=== PATIENT | female | born 2000 | race Caucasian/White ===

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

== ENCOUNTER 2019-10-28 20:12 | Emergency (ER) | payer OTHER ==
[~2019-10-28] VITALS: Ht 165.1 cm; Wt 68.0 kg
[~2019-10-28 20:12] MED LIST: BACIOIN7 TOP; IBUP80TA PO; MICR1TAB11 PO
[2019-10-28] MEDS ORDERED: LEVO50TA5 PO (20:21)
[2019-10-28 21:03] LABS: BASO # 0.1 10^3/uL (0.0-0.2); BASO % 0.5 % (0.0-1.0); EOS % 0.2 % (0.0-3.0); HEMATOCRIT 38.6 % (36.0-47.0); HEMOGLOBIN 12.7 g/dl (12.0-15.5); LYMPH # 1.9 10^3/uL (1.5-5.0); LYMPH % 19.9 % (24.0-44.0); MEAN CORPUSCULAR HGB CONC 32.9 g/dl (32.0-36.5); MEAN CORPUSCULAR VOLUME 88.1 fl (80.0-96.0); MONO # 0.7 10^3/uL (0.0-0.8); MONO % 7.3 % (0.0-5.0); NEUTROPHILS # 6.8 10^3/uL (1.5-8.5); NEUTROPHILS % 71.8 % (36.0-66.0); PLATELET COUNT, AUTOMATED 248 10^3/uL (150-450); RED BLOOD COUNT 4.38 10^6/uL (4.00-5.40); WHITE BLOOD COUNT 9.4 10^3/uL (4.0-10.0)
[2019-10-28 21:07] LABS: APPEARANCE, URINE HAZY (CLEAR); BACTERIA, URINE AUTO NEGATIVE (NEGATIVE); BILIRUBIN, URINE AUTO NEGATIVE (NEGATIVE); BLOOD, URINE BLOOD NEGATIVE (NEGATIVE); COLOR, URINE YELLOW (YELLOW); GLUCOSE, URINE (UA) AUTO NEGATIVE (NEGATIVE); KETONE, URINE AUTO NEGATIVE (NEGATIVE); LEUKOCYTE ESTERASE, URINE AUTO NEGATIVE (NEGATIVE); MUCUS, URINE SMALL (NEGATIVE); NITRITE, URINE AUTO NEGATIVE (NEGATIVE); PROTEIN, URINE AUTO NEGATIVE (NEGATIVE); RBC, URINE AUTO 1 /HPF (0-3); SPECIFIC GRAVITY URINE AUTO 1.024 (1.002-1.035); SQUAMOUS EPITHELIAL CELL UR AU 4 /HPF (0-6); UROBILINOGEN, URINE AUTO 0.2 mg/dL (0.0-2.0); WBC, URINE AUTO 1 /HPF (0-3)
[2019-10-28 21:52] LABS: BLOOD UREA NITROGEN 10 MG/DL (7-18); CALCIUM LEVEL 8.9 MG/DL (8.5-10.1); CARBON DIOXIDE LEVEL 27 MEQ/L (21-32); CHLORIDE LEVEL 105 MEQ/L (98-107); CREATININE FOR GFR 0.62 MG/DL (0.55-1.30); GLUCOSE, FASTING 92 MG/DL (70-100); HCG, SERUM QUANTITATIVE 84522 MIU/ML; POTASSIUM SERUM 3.7 MEQ/L (3.5-5.1); SODIUM LEVEL 137 MEQ/L (136-145)
[2019-10-28 23:00] LABS: CHLAMYDIA DNA AMPLIFICATION NEGATIVE (NEGATIVE); GC DNA AMPLIFICATION NEGATIVE (NEGATIVE)
--- NOTE | 2019-10-28 23:10 | REPVR ---
PROCEDURE INFORMATION: Exam: US First Trimester, Transabdominal Exam date and time: 10/28/2019 10:55 PM Age: 19 years old Clinical indication: Lmp or gestational age (in weeks): 7 w 2 d; Antepartum complications; Bleeding; ; Additional info: Vaginal bleeding TECHNIQUE: Imaging protocol: Real-time transabdominal obstetrical ultrasound of the maternal pelvis and a first trimester , less than 14 weeks 0 days, with image documentation. COMPARISON: No relevant prior studies available. FINDINGS: Last menstrual period: 09/07/2019 GESTATION: Gestation: There is a single intrauterine gestation. A yolk sac is visualized. Heart rate: 141 bpm Placenta: Unremarkable. No subchorionic bleed. Amniotic fluid: Amniotic and coelomic fluid are normal for gestational age. BIOMETRY: Estimated gestational age by US: 7 weeks 3 days Estimated gestational age by LMP: 7 weeks 2 days Pelion-Rump length: 1.2 cm, which is in the 57th percentile Estimated due date by US: 06/12/2020 Estimated due date by LMP: 06/13/2020 MATERNAL: Uterus: Unremarkable. Cervix: Unremarkable. Right adnexa: The right ovary is normal in appearance. No right ovarian cyst or right adnexal mass is noted. The right ovary measures 2.9 cm x 2.8 cm x 2.7 cm. The arterial and venous color Doppler flow and spectral waveforms within the right ovary are within normal limits, without evidence for right ovarian torsion. Left adnexa: The left ovary is normal in appearance. No left ovarian cyst or left adnexal mass is noted. The left ovary measures 3.1 cm x 2.5 cm x 2.5 cm. The arterial and venous color Doppler flow and spectral waveforms within the left ovary are within normal limits, without evidence for left ovarian torsion. Intraperitoneal: No intraperitoneal free fluid is seen from the images obtained. IMPRESSION: Single live intrauterine with an estimated gestational age of 7 weeks 3 days and estimated due date on 06/12/2020. A second trimester obstetrical ultrasound is suggested at 19-20 weeks gestation for a detailed anatomical survey. Electronically signed by: Marko Dean On 10/28/2019 23:10:20 PM
[2019-10-28 23:31] VITALS: BP 102/60
[2019-10-28] MEDS ORDERED: FLAG500T PO (23:31)
== END 2019-10-28 23:35 | disposition home or self-care (01) ==
LOC: M ED 20:12
DX: O20.9 Hemorrhage in early pregnancy, unspecified (principal); O26.891 Other specified pregnancy related conditions, first trimester; M54.5 Low back pain; O23.591 Infection of other part of genital tract in pregnancy, first trimester; Z3A.01 Less than 8 weeks gestation of pregnancy; O99.281 Endocrine, nutritional and metabolic diseases complicating pregnancy, first trimester; E03.9 Hypothyroidism, unspecified; Z79.890 Hormone replacement therapy; Z88.0 Allergy status to penicillin

== ENCOUNTER → 2019-11-12 | Outpatient (REF) | payer OTHER ==
[~2019-11-12] MED LIST changes: +FLAG500T PO; +LEVO50TA5 PO
[2019-11-12 18:41] LABS: HEMATOCRIT 35.5 % (36.0-47.0); HEMOGLOBIN 12.1 g/dl (12.0-15.5); MEAN CORPUSCULAR HEMOGLOBIN 30.2 pg (27.0-33.0); MEAN CORPUSCULAR HGB CONC 34.1 g/dl (32.0-36.5); MEAN CORPUSCULAR VOLUME 88.5 fl (80.0-96.0); PLATELET COUNT, AUTOMATED 211 10^3/uL (150-450); RED BLOOD COUNT 4.01 10^6/uL (4.00-5.40); WHITE BLOOD COUNT 8.4 10^3/uL (4.0-10.0)
[2019-11-13 11:58] LABS: HIV 1&2 SCREEN CENTAUR NEGATIVE (NEGATIVE); RUBELLA IgG QUALITATIVE IMMUNE (IMMUNE)
[2019-11-14 08:54] LABS: HEPATITIS C VIRUS ABY INDEX 0.1 INDEX (<0.8)
== END ==
LOC: M LAB REF 16:49
PROVIDERS: ATTEND Obstetrics & Gynecology
DX: Z34.81 Encounter for supervision of other normal pregnancy, first trimester (principal)

== ENCOUNTER → 2020-01-30 | Outpatient (CLI) | payer OTHER ==
--- NOTE | 2020-01-30 17:03 | REP ---
OBSTETRIC SONOGRAPHY: HISTORY: Supervision of for anatomy. FINDINGS: Scanning through the gravid uterus demonstrates a single living intrauterine gestation in a cephalic lie. motion is observed, and heart rate is recorded at 147 beats per minute. A posterior fundal grade 1 placenta is seen without evidence of previa or abruption. Amniotic fluid is subjectively normal. Closed cervical length measured transabdominally is 3.3 cm. No extrauterine abnormalities observed. No anomaly is seen. The following anatomic structures are identified and felt to be unremarkable: cranium, choroid plexus, cavum, cerebellum and posterior fossa, nuchal fold, face and profile, four-chamber heart with left and right ventricular outflow tract views, diaphragm, left-sided stomach, abdominal wall cord insertion, three-vessel cord, kidneys and bladder, spine, upper and lower extremities. BIOMETRY CHART: BPD 5.0 cm = 21 weeks 0 days Head circumference 18.8 cm = 21 weeks 0 days Abdominal circumference 16.3 cm = 21 weeks 2 days Femur length 3.6 cm = 21 weeks 2 days Humeral length 3.5 cm = 21 weeks 6 days HC/AC ratio normal 1.15, cephalic index normal 0.73, estimated weight 411 grams, 0 pounds 14 ounces, 65th percentile for 20 weeks 5 days. IMPRESSION: Viable single intrauterine gestation at 20 weeks 6 days by today's composite sonographic criteria. Expected gestational age estimate based on prior sonography is 20 weeks 5 days. CARLOS by prior sonography, June 13, 2020.
== END ==
LOC: M WHC 11:06
PROVIDERS: ATTEND Obstetrics & Gynecology
DX: Z36.3 Encounter for antenatal screening for malformations (principal); Z3A.20 20 weeks gestation of pregnancy

== ENCOUNTER → 2020-03-12 | Outpatient (CLI) | payer OTHER ==
[~2020-03-12] MED LIST changes: +LABE100T36 PO
[2020-04-10 04:23] LABS: HEMATOCRIT 28.8 % (36.0-47.0); HEMOGLOBIN 9.3 g/dl (12.0-15.5); MEAN CORPUSCULAR HEMOGLOBIN 29.8 pg (27.0-33.0); MEAN CORPUSCULAR HGB CONC 32.3 g/dl (32.0-36.5); MEAN CORPUSCULAR VOLUME 92.3 fl (80.0-96.0); PLATELET COUNT, AUTOMATED 187 10^3/uL (150-450); RED BLOOD COUNT 3.12 10^6/uL (4.00-5.40); WHITE BLOOD COUNT 11.1 10^3/uL (4.0-10.0)
== END ==
LOC: M LAB 13:19
PROVIDERS: ATTEND Obstetrics & Gynecology
DX: Z34.02 Encounter for supervision of normal first pregnancy, second trimester (principal); Z3A.00 Weeks of gestation of pregnancy not specified

== ENCOUNTER → 2020-05-10 | Outpatient (CLI) | payer OTHER ==
[~2020-05-10] MED LIST changes: -LABE100T36 PO
--- NOTE | 2020-05-17 14:27 | REP ---
OBSTETRIC SONOGRAPHY HISTORY: Size/date discrepancy. Third trimester study for estimated weight and SUGAR. FINDINGS: Scanning through the gravid uterus demonstrates a single living intrauterine gestation in a transverse, head to the maternal left lie. The placenta is posterior grade 3 without evidence of previa. Amniotic fluid is subjectively increased. SUGAR is increased at 26.8 cm (7.8 to 24.9 cm). heart rate is recorded at 139 beats per minute. Three vessel umbilical cord is observed. Closed cervical length is measured transabdominally at 3.2 cm. BIOMETRY CHART: BPD 9.1 cm 37 weeks 0 days Head Circumference 33.2 cm 37 weeks 6 days Abdominal Circumference 31.8 cm 35 weeks 5 days Femur Length 6.9 cm 35 weeks 2 days Humeral Length 6.1 cm 35 weeks 1 day HC/AC ratio Normal, 1.05 Cephalic index Normal, 0.77 Estimated Weight 2804 g, 6 lbs 2 oz 66th percentile for 35 weeks 2 days IMPRESSION: Single living intrauterine gestation at 36 weeks 1 day by todays composite criteria. CARLOS by todays sonography June 06, 2020. Polyhydramnios. Estimated weight 66th percentile. MTDD
== END ==
LOC: M WHC 11:01
PROVIDERS: ATTEND Advanced Practice Midwife
DX: O26.843 Uterine size-date discrepancy, third trimester (principal); Z3A.36 36 weeks gestation of pregnancy

== ENCOUNTER 2020-05-16 17:15 | Outpatient (CLI) | payer OTHER ==
[~2020-05-16] VITALS: Ht 165.1 cm; Wt 91.0 kg
[2020-05-16 17:40] VITALS: BP 132/84
== END 2020-05-16 19:00 | disposition home or self-care (01) ==
LOC: M LDO 17:15
PROVIDERS: ATTEND Specialist
DX: O26.893 Other specified pregnancy related conditions, third trimester (principal); Z3A.36 36 weeks gestation of pregnancy

== ENCOUNTER → 2020-05-20 | Outpatient (CLI) | payer OTHER ==
--- NOTE | 2020-05-20 09:22 | REP ---
INDICATION: POLYHYDRAMNIOS,SUGAR AND POSITION COMPARISON: 05/10/2020 TECHNIQUE: Transabdominal obstetric ultrasound with color Doppler evaluation FINDINGS: Examination demonstrates a single live intrauterine in cephalic presentation. motion is identified by technologist. Placenta is noted posteriorly and grade 3 without evidence for placenta previa or abruption. Amniotic fluid volume is upper limits of normal (SUGAR equals 22.6 cm). Cervix appears closed. No evidence for nuchal cord. IMPRESSION: Amniotic fluid volume is upper limits of normal bordering polyhydramnios. No obvious anatomical abnormalities noted on current examination. <Electronically signed by Garrison Al > 05/20/20 0918
== END ==
LOC: M WHC 08:30
PROVIDERS: ATTEND Advanced Practice Midwife
DX: O40.3XX0 Polyhydramnios, third trimester, not applicable or unspecified (principal)

== ENCOUNTER 2020-06-05 13:00 | Inpatient (IN) | payer OTHER ==
[~2020-06-05] VITALS: Ht 165.1 cm; Wt 95.9 kg
[2020-06-05] VITALS (48 sets, daily range): BP systolic 125–170; BP diastolic 62–108
[2020-06-05] MEDS ORDERED: MAGNESIUM *L&D* 4GM/100ML BAG (40MG/ML) As Ordered ONE (13:25)
[2020-06-05] MEDS ORDERED: MAGNESIUM SULFATE 4% INJ 20GM/500ML (40MG/ML) As Ordered ONE (13:26)
[2020-06-05] MEDS ORDERED: MAG Sulf (L&D) 4 GM/100 ML 4 GM in IV 1 EA IV ONE (13:30)
--- NOTE | 2020-06-05 13:48 | HPEPDOC ---
Obstetrical History & Physical General Date of Admission Jun 05, 2020 at 13:20 History of Present Illness 19 yo G1 at 39 0/7 weeks by LMP c/w 7 week ultrasound (EDC=06/12/2020) presents w ith headaches starting this morning that got worse. She is experiencing blurry vision in both eyes. She is having trouble focusing, and feels "out of it." She has trouble forming sentences. She has had an increase in LE swelling recently. 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 BREAST: . ABDOMEN: Gravid and non-tender to touch. FETUS: Is vertex (VTX) by sterile vaginal examination (SVE), fetus is vertex (VTX) by Perfecto. HEART RATE: Regular rate and rhythm. LUNGS: Clear to auscultation (CTA). EXTREMITIES: No edema. No clonus. Deep tendon reflexes (DTRs) 3+ . Laboratory Data 24[facility] Laboratory Tests 2 06/05/20 13:27: Serology Scanned Report Hepatitis B Testing Pertinent Laboratoy Data Blood Type: O+ Group B Streptococcus: Negative Vaginal Examination Presentation: Cephalic presentation Assessment Variability: Moderate Accelerations: Positive Decelerations: None Tocometer Frequency: irregular Assessment/Plan Assessment Pt is a 19-year-old (G)1 para (P)0 at 39+0 weeks by 7-week ultrasound presents with QUIJANO's and elevated BP c/w preeclampsia. Plan Admit and orient. Cloud Operations Engineer and consent. Group B Streptococcus (GBS) negative. Anticipate [normal spontaneous delivery ()]. C-S as appropriate. Start Magnesium Sulfate for seizure prophylaxis RUSS NICHOLE MD Jun 05, 2020 13:48
[2020-06-05 13:52] LABS: HEMATOCRIT 29.6 % (36.0-47.0); MEAN CORPUSCULAR HEMOGLOBIN 23.9 pg (27.0-33.0); MEAN CORPUSCULAR HGB CONC 30.4 g/dl (32.0-36.5); MEAN CORPUSCULAR VOLUME 78.7 fl (80.0-96.0); PLATELET COUNT, AUTOMATED 171 10^3/uL (150-450); RED BLOOD COUNT 3.76 10^6/uL (4.00-5.40)
[2020-06-05 14:13] LABS: CREATININE,RANDOM URINE 13.9 MG/DL
[2020-06-05] MEDS ORDERED: ACETAMINOPHEN 500 MG TAB PO ONE (14:15)
[2020-06-05] MEDS: MAG Sulf (OBGYN) 20GM/500ML 20,000 MG in IV 1 EA IV SCH ×2 (14:20→23:27)
[2020-06-05 14:44] LABS: ALT/SGPT 12 U/L (12-78); BILIRUBIN,TOTAL 0.4 MG/DL (0.2-1.0); CREATININE FOR GFR 0.75 MG/DL (0.55-1.30); LDH LACTATE DEHYDROGENASE 427 U/L (84-246); URIC ACID 5.7 MG/DL (2.6-6.0)
[2020-06-05] MEDS: miSOPROStol 50 MCG 1/2 TAB (S0191) PO SCH ×3 (15:11→23:00)
[2020-06-05] MEDS ORDERED: LABETALOL 100MG/20ML VIAL IV STA (17:24)
[2020-06-05] MEDS: LR 1,000 ML IV SCH (18:00)
[2020-06-05] MEDS: ACETAMINOPHEN 500 MG TAB PO PRN (20:42)
[2020-06-06] VITALS (69 sets, daily range): BP systolic 110–175; BP diastolic 59–106
[2020-06-06] MEDS: ACETAMINOPHEN 500 MG TAB PO PRN (02:25)
[2020-06-06] MEDS: miSOPROStol 50 MCG 1/2 TAB (S0191) PO SCH (02:45)
[2020-06-06] MEDS ORDERED: LR 1,000 ML IV SCH (05:25)
[2020-06-06] MEDS ORDERED: OXYTOCIN DRIP 30 UNITS in IV 1 EA IV SCH (05:30)
--- NOTE | 2020-06-06 05:35 | IPNPDOC ---
Obstetrical Progress Note Date of Service Jun 06, 2020 Subjective feels cramping in abdomen. She has leaked a small amount of fluid per vagina Objective Vital Signs Date Time Temp Pulse Resp B/P (MAP) Pulse Ox O2 Delivery O2 Flow Rate FiO2 06/06/20 04:07 82 129/60 (83) 06/06/20 03:07 98.2 06/05/20 21:38 17 Assessment Variability: Moderate Accelerations: Positive Decelerations: None Heart Rate Tracing: Category I Tocometer Contractions: Yes Frequency: irregular Strength: palpated as mild Sterile Vaginal Examination Dilation: 1cm Effacement (%): 70% Station: -2 Cervical Consistency: Soft Cervical Position: Posterior Postion/Presentation: Cephalic presentation Assessment and Plan Age: 19 : 1 Term: 0 Group B Streptococcus: Negative Additional Comments 19 yo G1 at 39 1/7 weeks gestation, induction for preeclampsia Pt received 4 doses of Misoprostol Intracervical Cook's Catheter with 40 cc saline placed Suspect she may have had spontaneous rupture of membranes, but this is not confirmed Plan to start Pitocin Pt is on Magnesium sulfate for seizure prophylaxis She has two units PRBC's on hold due to starting Hb of 9.0 g/dl RUSS NICHOLE MD Jun 06, 2020 05:35
[2020-06-06] MEDS ORDERED: BUTORPHANOL 2 MG/ML INJ (J0595) IV ONE (06:30)
[2020-06-06] MEDS ORDERED: PROMETHAZINE INJ 25 MG/ML VIAL (J2550) IV ONE (06:30)
[2020-06-06] MEDS: MAG Sulf (OBGYN) 20GM/500ML 20,000 MG in IV 1 EA IV SCH (07:48)
[2020-06-06 08:39] LABS: HEMATOCRIT 26.7 % (36.0-47.0); HEMOGLOBIN 8.1 g/dl (12.0-15.5); MEAN CORPUSCULAR HEMOGLOBIN 24.3 pg (27.0-33.0); MEAN CORPUSCULAR HGB CONC 30.3 g/dl (32.0-36.5); MEAN CORPUSCULAR VOLUME 79.9 fl (80.0-96.0); PLATELET COUNT, AUTOMATED 155 10^3/uL (150-450); RED BLOOD COUNT 3.34 10^6/uL (4.00-5.40); WHITE BLOOD COUNT 10.8 10^3/uL (4.0-10.0)
--- NOTE | 2020-06-06 09:50 | IPNPDOC ---
Obstetrical Progress Note Date of Service Jun 06, 2020 Subjective feels cramps only after stadol Objective Vital Signs Date Time Temp Pulse Resp B/P (MAP) Pulse Ox O2 Delivery O2 Flow Rate FiO2 06/06/20 09:19 97.9 78 16 157/86 (109) Assessment Variability: Moderate Accelerations: Positive Decelerations: None Heart Rate Tracing: Category I Tocometer Contractions: Yes Frequency: regular Strength: palpated as moderate Sterile Vaginal Examination Dilation: 4 cm Effacement (%): 90% Station: -2 Cervical Consistency: Soft Cervical Position: Middle Assessment and Plan Status: Reassuring Additional Comments 19 yo G1 at 39 1/7 weeks with preeclampsia Cook's Catheter came out earlier AROM performed for clear fluid Continue Pitocin Repeat CBC shows Hb=8.1 g/dl; anticipate need for blood transfusion at some point Magnesium level= 7.6; plan to decrease Magnesium rate to 1 gram/hour; pt appears overly sedated (especially after Stadol was given) RUSS NICHOLE MD Jun 06, 2020 09:50
[2020-06-06] MEDS ORDERED: FENTANYL 2MCG/ML ROPIVACAINE 0.2% IN 0.9% NACL 100ML IVBAG As Ordered ONE (10:43)
[2020-06-06] MEDS: FENTANYL/ROPIVACAINE/NACL BAG 100 ML EPIDURAL SCH ×2 (11:08→16:19)
[2020-06-06] MEDS ORDERED: EPIDURAL COMMENT XX SCH (11:30)
[2020-06-06] MEDS ORDERED: diphenhydrAMINE 50MG/ML VIAL (J1200) IV PRN (11:30)
[2020-06-06] MEDS ORDERED: NALOXONE INJ 0.4MG/1ML VIAL (J2310 PER 1MG) IV PRN (11:30)
[2020-06-06] MEDS ORDERED: ePHEDrine SULFATE 25 MG/5 ML(5MG/ML) SYRINGE IV PRN (11:30)
[2020-06-06] MEDS ORDERED: EPIDURAL/PCA KEYS XX PRN (11:30)
[2020-06-06] MEDS ORDERED: LACTATED RINGER'S 1000 ML IV PRN (11:30)
[2020-06-06] MEDS ORDERED: ONDANSETRON 4MG/2ML VIAL IV PRN ×2 (11:30→19:15)
[2020-06-06] MEDS ORDERED: REFRIGERATOR IV KEYS XX PRN (11:30)
[2020-06-06] MEDS: LR 1,000 ML IV SCH (12:04)
[2020-06-06] MEDS ORDERED: MAG Sulf (OBGYN) 20GM/500ML 20,000 MG in IV 1 EA IV SCH (19:06)
[2020-06-06] MEDS ORDERED: IBUPROFEN 800 MG TAB PO PRN (19:15)
[2020-06-06] MEDS ORDERED: RHOGAM 300 MCG (1500 IU) INJ (J2790) IM SCH (19:15)
[2020-06-06] MEDS ORDERED: LIDOCAINE 1% MDV 20ML VIAL INFIL ONE (19:15)
[2020-06-06] MEDS ORDERED: MEASLES,MUMPS,RUBELLA VACCINE INJ (MMR-II) (90707) SC SCH (19:15)
[2020-06-06] MEDS ORDERED: ACETAMINOPHEN TAB 650MG DOSE (2X325MG) PO PRN (19:15)
[2020-06-06] MEDS ORDERED: OXYTOCIN DRIP 30 UNITS in IV 1 EA IV ONE (19:15)
[2020-06-06] MEDS ORDERED: IBUPROFEN 600MG TAB PO PRN (19:15)
[2020-06-06] MEDS ORDERED: METHYLERGONOVINE MALEATE 0.2 MG TAB PO PRN (19:15)
[2020-06-06] MEDS ORDERED: ACETAMINOPHEN 500 MG TAB PO PRN (19:15)
[2020-06-06] MEDS ORDERED: DIBUCAINE 1% OINTMENT 30GM TOP PRN (19:15)
[2020-06-06] MEDS ORDERED: DOCUSATE SODIUM 100 MG CAP PO PRN (19:15)
--- NOTE | 2020-06-06 19:20 | DNPDOC ---
[facility] Delivery Note Delivery Note DATE OF DELIVERY: June 06, 2020 PREDELIVERY DIAGNOSIS: 39-0/7 weeks' gestation and labor. POST DELIVERY DIAGNOSIS: Delivered. PROCEDURE: Spontaneous vaginal delivery. ROUTER OPERATOR PIN: Dr. Russ Nichole MD ANESTHESIA: epidural. ESTIMATED BLOOD LOSS: 300 mL. FINDINGS: 10 pound 0 ounce Male infant, Score 8/9. DELIVERY SUMMARY: Patient is a 19-year-old 1 now para 0 who was admitted to labor and delivery for induction due to preeclampsia. She received 4 doses of Misoprostol. She then had an intracervical Cook's Catheter with IV Pitocin. This was followed by AROM. After a two hour second stage of labor she had spontaneous vaginal delivery of a 10 lb. 0 oz Male, 's 8,9. Delivery of the shoulders was accomplished by first delivering the posterior (right) arm, which presented next to the ROT vertex. The anterior shoulder then delivered with ease. The infant was handed to the mother and cried quickly. The cord was doubly clamped and cut. The placenta delivered spontaneously and appeared intact. The patient received IV Pitocin immediately after delivery of the placenta. A first degree perineal laceration was repaired under local anesthesia with 2-O Chromic in the usual fashion. Sponge and needle counts were correct RUSS NICHOLE MD Jun 06, 2020 19:20
[2020-06-07] VITALS (33 sets, daily range): BP systolic 107–157; BP diastolic 55–96
[2020-06-07 06:25] LABS: ALBUMIN 1.9 GM/DL (3.2-5.2); ALT/SGPT 9 U/L (12-78); BILIRUBIN,TOTAL 0.4 MG/DL (0.2-1.0); BLOOD UREA NITROGEN 9 MG/DL (7-18); CALCIUM LEVEL 6.7 MG/DL (8.5-10.1); CARBON DIOXIDE LEVEL 24 MEQ/L (21-32); CHLORIDE LEVEL 106 MEQ/L (98-107); CREATININE FOR GFR 1.23 MG/DL (0.55-1.30); GLUCOSE, FASTING 112 MG/DL (70-100); POTASSIUM SERUM 3.6 MEQ/L (3.5-5.1); SODIUM LEVEL 137 MEQ/L (136-145); TOTAL PROTEIN 4.9 GM/DL (6.4-8.2)
[2020-06-07 07:38] LABS: MEAN CORPUSCULAR HEMOGLOBIN 24.6 pg (27.0-33.0); MEAN CORPUSCULAR HGB CONC 30.9 g/dl (32.0-36.5); MEAN CORPUSCULAR VOLUME 79.5 fl (80.0-96.0); PLATELET COUNT, AUTOMATED 155 10^3/uL (150-450); RED BLOOD COUNT 2.24 10^6/uL (4.00-5.40); WHITE BLOOD COUNT 16.5 10^3/uL (4.0-10.0)
[2020-06-07 07:40] LABS: HEMATOCRIT 17.8 % (36.0-47.0); HEMOGLOBIN 5.5 g/dl (12.0-15.5)
[2020-06-07] MEDS: LR 1,000 ML IV SCH ×2 (08:31→13:23)
[2020-06-07] MEDS: PRENATAL VITAMINS CHEWABLE TABLET PO SCH (09:00)
[2020-06-07 16:26] LABS: HEMOGLOBIN 8.3 g/dl (12.0-15.5); MEAN CORPUSCULAR HEMOGLOBIN 26.4 pg (27.0-33.0); MEAN CORPUSCULAR HGB CONC 31.9 g/dl (32.0-36.5); MEAN CORPUSCULAR VOLUME 82.8 fl (80.0-96.0); PLATELET COUNT, AUTOMATED 141 10^3/uL (150-450); RED BLOOD COUNT 3.14 10^6/uL (4.00-5.40); WHITE BLOOD COUNT 15.1 10^3/uL (4.0-10.0)
[2020-06-07 17:03] LABS: MAGNESIUM LEVEL 6.1 MG/DL (1.8-2.4)
[2020-06-07] MEDS ORDERED: SLF 3 ML SYR IV PRN (17:30)
[2020-06-07] MEDS: SLF 3 ML SYR IV SCH (22:00)
[2020-06-08 01:40] VITALS: BP 130/82
[2020-06-08 05:40] VITALS: BP 147/80
[2020-06-08 07:12] LABS: HEMATOCRIT 27.1 % (36.0-47.0); HEMOGLOBIN 8.7 g/dl (12.0-15.5); MEAN CORPUSCULAR HEMOGLOBIN 26.8 pg (27.0-33.0); MEAN CORPUSCULAR HGB CONC 32.1 g/dl (32.0-36.5); MEAN CORPUSCULAR VOLUME 83.4 fl (80.0-96.0); PLATELET COUNT, AUTOMATED 132 10^3/uL (150-450); RED BLOOD COUNT 3.25 10^6/uL (4.00-5.40); WHITE BLOOD COUNT 13.9 10^3/uL (4.0-10.0)
[2020-06-08] MEDS: PRENATAL VITAMINS CHEWABLE TABLET PO SCH (07:22)
[2020-06-08 07:46] LABS: ALT/SGPT 10 U/L (12-78); BILIRUBIN,TOTAL 0.2 MG/DL (0.2-1.0); CREATININE FOR GFR 0.98 MG/DL (0.55-1.30); LDH LACTATE DEHYDROGENASE 297 U/L (84-246); URIC ACID 8.1 MG/DL (2.6-6.0)
[2020-06-08 10:00] VITALS: BP 157/92
[2020-06-08 14:00] VITALS: BP 134/86
[2020-06-08] MEDS: SLF 3 ML SYR IV SCH ×2 (14:00→22:00)
[2020-06-08 18:07] VITALS: BP 149/87
[2020-06-08 21:52] VITALS: BP 149/92
[2020-06-09 01:52] VITALS: BP 154/80
[2020-06-09 06:00] VITALS: BP 148/93
[2020-06-09] MEDS ORDERED: LABE100T36 PO (08:39)
--- NOTE | 2020-06-09 08:48 | OBDS ---
[facility] Obstetrical Discharge Sum. Obstetrical Discharge Summary Panel Maker/Provider: Ritchie Jefferson DO Date: Jun 09, 2020 : 1 Term: 1 Pre-term: 0 Abortions: 0 Livin VDRL: Non-Reactive A/P, Post Course List any complications Admission diagnosis: IUP at 39 weeks with severe pre-eclampsia. Discharge diagnosis: Same Condition at Discharge: [Stable] Discharge Instructions: [Please report any severe headache and blurred vision] Activity: [As tolerated] Diet: [regular] Medications: [Labetatol 100 mg po bid] Follow-up: [1 week for bp check] Other: Ritchie Jefferson DO Jun 09, 2020 08:48
[2020-06-09] MEDS ORDERED: LABETALOL 100 MG TAB PO SCH (09:00)
[2020-06-09] MEDS: PRENATAL VITAMINS CHEWABLE TABLET PO SCH (09:28)
== END 2020-06-09 12:04 | disposition home or self-care (01) | DRG 560 ==
LOC: M LDO 13:00 → M LDI 13:20 → M OBS 06-07 19:08
PROVIDERS: ADMIT Specialist; ATTEND Specialist
PROC: 3E033VJ Introduction of Other Hormone into Peripheral Vein, Percutaneous Approach (ICD-10-PCS; 2020-06-05)
PROC: 3E0DXGC Introduction of Other Therapeutic Substance into Mouth and Pharynx, External Approach (ICD-10-PCS; 2020-06-05)
PROC: 10E0XZZ Delivery of Products of Conception, External Approach (ICD-10-PCS; principal; 2020-06-06)
PROC: 0HQ9XZZ Repair Perineum Skin, External Approach (ICD-10-PCS; 2020-06-06)
DX: O14.14 Severe pre-eclampsia complicating childbirth (principal); O70.0 First degree perineal laceration during delivery; Z37.0 Single live birth; Z3A.39 39 weeks gestation of pregnancy

== ENCOUNTER 2021-11-04 09:41 | Emergency (ER) | payer OTHER ==
[~2021-11-04] VITALS: Ht 167.6 cm; Wt 75.0 kg
[~2021-11-04 09:41] MED LIST changes: +LABE100T5 PO
[2021-11-04 10:28] LABS: BASO % 0.3 % (0.0-1.0); EOS % 0.5 % (0.0-3.0); HEMATOCRIT 34.8 % (36.0-47.0); HEMOGLOBIN 11.2 g/dl (12.0-15.5); LYMPH # 0.4 10^3/uL (1.5-5.0); LYMPH % 5.4 % (24.0-44.0); MEAN CORPUSCULAR HEMOGLOBIN 26.2 pg (27.0-33.0); MEAN CORPUSCULAR HGB CONC 32.2 g/dl (32.0-36.5); MEAN CORPUSCULAR VOLUME 81.3 fl (80.0-96.0); MONO # 0.3 10^3/uL (0.0-0.8); MONO % 4.3 % (2.0-8.0); NEUTROPHILS # 7.2 10^3/uL (1.5-8.5); NEUTROPHILS % 89.2 % (36.0-66.0); PLATELET COUNT, AUTOMATED 180 10^3/uL (150-450); RED BLOOD COUNT 4.28 10^6/uL (4.00-5.40)
[2021-11-04 10:58] LABS: ALBUMIN 3.5 GM/DL (3.2-5.2); ALT/SGPT 14 U/L (12-78); BILIRUBIN,TOTAL 0.6 MG/DL (0.2-1.0); BLOOD UREA NITROGEN 10 MG/DL (7-18); CALCIUM LEVEL 8.5 MG/DL (8.5-10.1); CARBON DIOXIDE LEVEL 27 MEQ/L (21-32); CHLORIDE LEVEL 107 MEQ/L (98-107); CREATININE FOR GFR 0.58 MG/DL (0.55-1.30); GLOMERULAR FILTRATION RATE > 60.0 (>60); GLUCOSE, FASTING 83 MG/DL (70-100); POTASSIUM SERUM 3.6 MEQ/L (3.5-5.1); SODIUM LEVEL 137 MEQ/L (136-145); TOTAL PROTEIN 7.3 GM/DL (6.4-8.2)
[2021-11-04] MEDS ORDERED: NS 1,000 ML IV ONE (11:40)
[2021-11-04] MEDS ORDERED: ONDANSETRON 4MG/2ML VIAL IV ONE (12:00)
[2021-11-04 12:09] LABS: FREE THYROXINE INDEX 3.3 % (1.3-4.8); T UPTAKE 29 % (30-39); THYROXINE (T4) 11.3 UG/DL (4.5-12.0)
[2021-11-04 13:32] VITALS: BP 132/69
== END 2021-11-04 13:34 | disposition home or self-care (01) ==
LOC: M ED 09:41
DX: O26.91 Pregnancy related conditions, unspecified, first trimester (principal); R94.6 Abnormal results of thyroid function studies; Z88.0 Allergy status to penicillin; Z3A.00 Weeks of gestation of pregnancy not specified
CPT/HCPCS: 80053; 84436; 84443; 84479; 85025; 93005; 96361; 96374; 99284; J2405

== ENCOUNTER → 2021-12-12 | Outpatient (REF) | payer OTHER | LOC: M PLALAB 12:55 | PROVIDERS: ATTEND Advanced Practice Midwife | DX: Z53.9 Procedure and treatment not carried out, unspecified reason (principal) ==

== ENCOUNTER → 2021-12-23 | Outpatient (CLI) | payer OTHER ==
[2021-12-23 13:32] LABS: HEMATOCRIT 30.1 % (36.0-47.0); HEMOGLOBIN 9.4 g/dl (12.0-15.5); MEAN CORPUSCULAR HEMOGLOBIN 25.7 pg (27.0-33.0); MEAN CORPUSCULAR HGB CONC 31.2 g/dl (32.0-36.5); MEAN CORPUSCULAR VOLUME 82.2 fl (80.0-96.0); PLATELET COUNT, AUTOMATED 251 10^3/uL (150-450); RED BLOOD COUNT 3.66 10^6/uL (4.00-5.40); WHITE BLOOD COUNT 9.1 10^3/uL (4.0-10.0)
== END ==
LOC: M PLALAB 10:25
PROVIDERS: ATTEND Advanced Practice Midwife
DX: Z34.92 Encounter for supervision of normal pregnancy, unspecified, second trimester (principal)

== ENCOUNTER → 2022-03-27 | Outpatient (CLI) | payer OTHER ==
[~2022-03-27] MED LIST changes: -LABE100T5 PO; +LABE100T71 PO
== END ==
LOC: M WHC 14:48
PROVIDERS: ATTEND Obstetrics & Gynecology
DX: O09.293 Supervision of pregnancy with other poor reproductive or obstetric history, third trimester (principal); Z3A.38 38 weeks gestation of pregnancy

== ENCOUNTER 2022-04-11 16:23 | Inpatient (IN) | payer OTHER ==
[~2022-04-11] VITALS: Ht 165.1 cm; Wt 94.0 kg
[2022-04-11] VITALS (21 sets, daily range): BP systolic 93–139; BP diastolic 52–87
[2022-04-11] MEDS ORDERED: HOME MED LIST COMPLETE! XX SCH (18:40)
[2022-04-11 18:50] LABS: HEMATOCRIT 27.6 % (36.0-47.0); HEMOGLOBIN 8.1 g/dl (12.0-15.5); MEAN CORPUSCULAR HEMOGLOBIN 21.5 pg (27.0-33.0); MEAN CORPUSCULAR HGB CONC 29.3 g/dl (32.0-36.5); MEAN CORPUSCULAR VOLUME 73.2 fl (80.0-96.0); PLATELET COUNT, AUTOMATED 181 10^3/uL (150-450); RED BLOOD COUNT 3.77 10^6/uL (4.00-5.40); WHITE BLOOD COUNT 10.4 10^3/uL (4.0-10.0)
[2022-04-11] MEDS: miSOPROStol 50MCG 1/2 TABLET SL SCH ×2 (18:53→23:14)
[2022-04-11] MEDS ORDERED: NS 1,000 ML IV SCH (19:05)
[2022-04-11 19:58] LABS: HIV 1&2 SCREEN CENTAUR NEGATIVE (NEGATIVE)
[2022-04-12] VITALS (35 sets, daily range): BP systolic 119–159; BP diastolic 58–94
[2022-04-12] MEDS ORDERED: PROMETHAZINE 25MG/ML 1ML VIAL IV STA (00:02)
[2022-04-12] MEDS ORDERED: BUTORPHANOL 2 MG/ML INJ (J0595) IV STA (00:02)
[2022-04-12] MEDS ORDERED: FENTANYL/ROPIVACAINE/NACL BAG 100 ML EPIDURAL SCH (03:25)
[2022-04-12] MEDS ORDERED: NALOXONE INJ 0.4MG/1ML VIAL (J2310 PER 1MG) IV PRN (03:25)
[2022-04-12] MEDS ORDERED: EPIDURAL/PCA KEYS XX PRN (03:25)
[2022-04-12] MEDS ORDERED: ePHEDrine SULFATE 25 MG/5 ML(5MG/ML) SYRINGE IVP PRN (03:25)
[2022-04-12] MEDS ORDERED: diphenhydrAMINE 50MG/ML VIAL (J1200) IV PRN (03:25)
[2022-04-12] MEDS ORDERED: ONDANSETRON 4MG 2ML VIAL IV PRN (03:25)
[2022-04-12] MEDS ORDERED: LR 500 ML IV PRN (03:25)
[2022-04-12] MEDS ORDERED: OXYTOCIN DRIP 30 UNITS in IV 1 EA IV STA (05:22)
[2022-04-12 06:18] LABS: GC DNA AMPLIFICATION NEGATIVE (NEGATIVE)
[2022-04-12] MEDS ORDERED: LIDOCAINE 1% MDV 20ML VIAL As Ordered ONE (06:31)
[2022-04-12] MEDS ORDERED: METHYLERGONOVINE MALEATE 0.2 MG TAB PO PRN (06:55)
[2022-04-12] MEDS ORDERED: ACETAMINOPHEN 500 MG TAB PO PRN (06:55)
[2022-04-12] MEDS ORDERED: DOCUSATE SODIUM 100MG CAPSULE PO PRN (06:55)
[2022-04-12] MEDS ORDERED: OXYTOCIN DRIP 30 UNITS in IV 1 EA IV ONE (06:55)
[2022-04-12] MEDS ORDERED: ACETAMINOPHEN TAB 650MG DOSE (2X325MG) PO PRN (06:55)
[2022-04-12] MEDS ORDERED: DIBUCAINE 1% OINTMENT 30GM TOP PRN (06:55)
[2022-04-12] MEDS ORDERED: IBUPROFEN 600MG TAB PO PRN (06:55)
[2022-04-12] MEDS ORDERED: RHOGAM 300 MCG (1500 IU) INJ (J2790) IM SCH (06:55)
[2022-04-12] MEDS ORDERED: LIDOCAINE 1% MDV 20ML VIAL INFIL ONE (06:55)
[2022-04-12] MEDS ORDERED: IBUPROFEN 800 MG TAB PO PRN (06:55)
[2022-04-12] MEDS: PRENATAL VITAMINS CHEWABLE TABLET PO SCH (09:00)
[2022-04-13 05:56] VITALS: BP 107/59
[2022-04-13 07:02] LABS: HEMATOCRIT 26.6 % (36.0-47.0); HEMOGLOBIN 7.9 g/dl (12.0-15.5); MEAN CORPUSCULAR HGB CONC 29.7 g/dl (32.0-36.5); MEAN CORPUSCULAR VOLUME 77.3 fl (80.0-96.0); PLATELET COUNT, AUTOMATED 147 10^3/uL (150-450); RED BLOOD COUNT 3.44 10^6/uL (4.00-5.40); WHITE BLOOD COUNT 13.7 10^3/uL (4.0-10.0)
[2022-04-13] MEDS: PRENATAL VITAMINS CHEWABLE TABLET PO SCH (08:28)
[2022-04-14] MEDS ORDERED: MEASLES,MUMPS,RUBELLA VACCINE INJ (MMR-II) (90707) SC.IMMUN ONE (09:00)
== END 2022-04-13 13:15 | disposition home or self-care (01) | DRG 560 ==
LOC: M LDI 16:23 → M OBS 04-12 10:02
PROVIDERS: ADMIT Specialist; ATTEND Specialist
PROC: 30233N1 Transfusion of Nonautologous Red Blood Cells into Peripheral Vein, Percutaneous Approach (ICD-10-PCS; 2022-04-11)
PROC: 3E033VJ Introduction of Other Hormone into Peripheral Vein, Percutaneous Approach (ICD-10-PCS; 2022-04-11)
PROC: 10E0XZZ Delivery of Products of Conception, External Approach (ICD-10-PCS; principal; 2022-04-12)
PROC: 0KQM0ZZ Repair Perineum Muscle, Open Approach (ICD-10-PCS; 2022-04-12)
PROC: 3E0DXGC Introduction of Other Therapeutic Substance into Mouth and Pharynx, External Approach (ICD-10-PCS; 2022-04-12)
DX: O64.3XX0 Obstructed labor due to brow presentation, not applicable or unspecified (principal); D64.9 Anemia, unspecified; Z37.0 Single live birth; Z3A.39 39 weeks gestation of pregnancy; O70.1 Second degree perineal laceration during delivery; O99.02 Anemia complicating childbirth

== ENCOUNTER → 2025-05-11 | Outpatient (CLI) | payer OTHER ==
[~2025-05-11] MED LIST changes: +LABE100T40 PO; -LABE100T71 PO
[2025-05-11 13:49] LABS: PLATELET COUNT, AUTOMATED 214 10^3/uL (150-450)
[2025-05-11 14:19] LABS: Trichomonas vaginalis (AMP) NOT DETECTED (NEGATIVE)
[2025-05-11 14:43] LABS: GC DNA AMPLIFICATION NEGATIVE (NEGATIVE)
[2025-05-11 15:53] LABS: HIV 1&2 SCREEN NEGATIVE (NEGATIVE)
[2025-05-11 16:01] LABS: HEPATITIS C VIRUS ABY INDEX < 0.02 INDEX (<0.8)
== END ==
LOC: M PLALAB 12:10
PROVIDERS: ATTEND Specialist
DX: Z34.81 Encounter for supervision of other normal pregnancy, first trimester (principal)

== ENCOUNTER → 2025-05-22 | Outpatient (REF) | payer OTHER | LOC: M PLALAB 13:21 | PROVIDERS: ATTEND Obstetrics & Gynecology | DX: Z53.9 Procedure and treatment not carried out, unspecified reason (principal) ==

== ENCOUNTER → 2025-06-17 | Outpatient (CLI) | payer OTHER ==
[2025-06-17 18:08] LABS: LDH LACTATE DEHYDROGENASE 156 U/L (120-246)
[2025-06-17 18:09] LABS: ALT/SGPT < 9 U/L (7.0-40); AST/SGOT 13 U/L (<34); CREATININE FOR GFR 0.60 MG/DL (0.55-1.30); GLOMERULAR FILTRATION RATE > 90.0 (>60)
[2025-06-17 18:10] LABS: FREE T4 0.85 NG/DL (0.89-1.76)
[2025-06-17 18:16] LABS: PLATELET COUNT, AUTOMATED 224 10^3/uL (150-450)
== END ==
LOC: M PLALAB 12:19
PROVIDERS: ATTEND Obstetrics & Gynecology
DX: E05.90 Thyrotoxicosis, unspecified without thyrotoxic crisis or storm (principal)

== ENCOUNTER → 2025-07-17 | Outpatient (REF) | payer OTHER ==
[2025-07-17 18:27] LABS: TOTAL PROTEIN,RANDOM URINE 20.2 MG/DL (0.0-14.0)
== END ==
LOC: M SFHCWAGY 16:58
PROVIDERS: ATTEND Obstetrics & Gynecology
DX: O14.90 Unspecified pre-eclampsia, unspecified trimester (principal); Z3A.00 Weeks of gestation of pregnancy not specified